=== PATIENT | male | born 1980 | race Caucasian/White ===

== ENCOUNTER → 2024-09-10 14:00 | Outpatient (BNV) | payer OTHER, SELFPAY | PROVIDERS: Visit Provider Clinical Nurse Specialist Psychiatric/Mental Health | DX: F32.2 Major depressive disorder, single episode, severe without psychotic features (principal) | CPT/HCPCS: 90868 ==

== ENCOUNTER 2024-11-19 10:30 | Outpatient (RCR) | payer OTHER, SELFPAY ==
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
--- NOTE | 2024-09-10 14:10 | HO.TMSDAILY2 ---
TMS Daily Progress Note Daily TMS Progress Note Date of Service: 09/10/24 Week #: 1 Treatment #(04-25): 1 and mapping PHQ-9 Pre-Treatment (-): 12 PHQ-9 Most Recent (04-22): 12 KRISHAN-7 Pre-Treatment (0-21): 14 KRISHAN-7 Most Recent (0-): 14 Reviewed: TMS Mapping/Re-mapping completed Verification: I have reviewed the TMS Entry Level Automotive Technician Note and agree with the contents. The patient remains a candidate to continue TMS treatment per protocol. I have reviewed Dr Connell TMS consult note. Mapping completed; pt tolerated procedure well. Assessment and Plan (1) Depressive disorder, atypical: Status: Acute (2) Chronic post-traumatic stress disorder (PTSD): Status: Acute Plan Continue TMS treatment plan; discussed with patient to monitor for mood swings and to alert staff andhis personal psychiatrist if he begins to feel dysregulated/mood swings: he verbalized agreement and understanding
--- NOTE | 2024-09-16 12:52 | P.PNPS_ITS ---
TMS Daily Progress Note Daily TMS Progress Note Date of Service: 09/12/24 Week #: 1 Treatment #(04-25): 3 PHQ-9 Pre-Treatment (-): 12 PHQ-9 Most Recent (-): 12 KRISHAN-7 Pre-Treatment (0-21): 14 KRISHAN-7 Most Recent (0-21): 14 CGI-I Most Recent: 0 = Not Assessed Reviewed: TMS Tech Note Reviewed Verification: I have reviewed the TMS Electrician Office Note and agree with the contents. The patient remains a candidate to continue TMS treatment per protocol. Assessment and Plan (1) Depressive disorder, atypical: Status: Acute (2) Chronic post-traumatic stress disorder (PTSD): Status: Acute Plan Continue TMS tx plan
--- NOTE | 2024-09-17 17:02 | HO.TMSDAILY2 ---
TMS Daily Progress Note Daily TMS Progress Note Date of Service: 09/16/24 Week #: 1 Treatment #(30): 5 PHQ-9 Pre-Treatment (-): 12 PHQ-9 Most Recent (-): 16 KRISHAN-7 Pre-Treatment (0-21): 14 KRISHAN-7 Most Recent (0-21): 17 CGI-I Most Recent: 0 = Not Assessed Q-LES-Q-SF Most Recent: 34 Reviewed: TMS Tech Note Reviewed Verification: I have reviewed the TMS Electrical Appliance Preparer Note and agree with the contents. The patient remains a candidate to continue TMS treatment per protocol. Assessment and Plan (1) Depressive disorder, atypical: Status: Acute (2) Chronic post-traumatic stress disorder (PTSD): Status: Acute Plan Continue TMS treatment plan; of note PHQ9 and KRISHAN score are worse from pre treatment scores; will monitor
--- NOTE | 2024-09-17 17:04 | P.PNPS_ITS ---
TMS Daily Progress Note Daily TMS Progress Note Date of Service: 09/17/24 Week #: 1 Treatment #(04-25): 6 PHQ-9 Pre-Treatment (1-): 12 PHQ-9 Most Recent (04-22): 16 KRISHAN-7 Pre-Treatment (0-21): 14 KRISHAN-7 Most Recent (0-21): 17 CGI-I Most Recent: 0 = Not Assessed Q-LES-Q-SF Most Recent: 34 Reviewed: TMS Tech Note Reviewed Verification: I have reviewed the TMS Geographical Historian Note and agree with the contents. The patient remains a candidate to continue TMS treatment per protocol. Assessment and Plan (1) Chronic post-traumatic stress disorder (PTSD): Status: Acute (2) Depressive disorder, atypical: Status: Acute Plan Continue TMS treatment plan; monitor progress as RCS7ipa GAD7 scores worse since admission
--- NOTE | 2024-09-23 11:02 | P.PNPS_ITS ---
TMS Daily Progress Note Daily TMS Progress Note Date of Service: 09/19/24 Week #: 2 Treatment #(-30): 7 PHQ-9 Pre-Treatment (-): 12 PHQ-9 Most Recent (04-22): 16 KRISHAN-7 Pre-Treatment (0-21): 14 KRISHAN-7 Most Recent (0-21): 17 CGI-I Most Recent: 0 = Not Assessed Q-LES-Q-SF Most Recent: 34 Reviewed: TMS Tech Note Reviewed Verification: I have reviewed the TMS Diesel Locomotive Crane Operator Note and agree with the contents. The patient remains a candidate to continue TMS treatment per protocol. Assessment and Plan (1) Chronic post-traumatic stress disorder (PTSD): Status: Acute (2) Depressive disorder, atypical: Status: Acute Plan Continue TMS treatment plan
--- NOTE | 2024-10-14 17:18 | P.PNPS_ITS ---
TMS Daily Progress Note Daily TMS Progress Note Date of Service: 10/14/24 Week #: 4 Treatment #(04-25): 17 PHQ-9 Pre-Treatment (-): 12 PHQ-9 Most Recent (04-22): 16 KRISHAN-7 Pre-Treatment (0-21): 14 KRISHAN-7 Most Recent (0-21): 16 CGI-I Most Recent: 0 = Not Assessed Q-LES-Q-SF Most Recent: 34 Reviewed: TMS Tech Note Reviewed Verification: I have reviewed the TMS Optical Engineering Manager Note and agree with the contents. The patient remains a candidate to continue TMS treatment per protocol. Assessment and Plan (1) Chronic post-traumatic stress disorder (PTSD): Status: Acute (2) Depressive disorder, atypical: Status: Acute Plan Continue TMS treatment plan
--- NOTE | 2024-10-14 17:19 | P.PNPS_ITS ---
TMS Daily Progress Note Daily TMS Progress Note Date of Service: 10/10/24 Week #: 4 Treatment #(-30): 16 PHQ-9 Pre-Treatment (1-): 12 PHQ-9 Most Recent (04-22): 16 KRISHAN-7 Pre-Treatment (0-21): 14 KRISHAN-7 Most Recent (0-21): 18 CGI-I Most Recent: 0 = Not Assessed Q-LES-Q-SF Most Recent: 34 Reviewed: TMS Tech Note Reviewed Verification: I have reviewed the TMS Singer Back Tender Note and agree with the contents. The patient remains a candidate to continue TMS treatment per protocol. Assessment and Plan (1) Chronic post-traumatic stress disorder (PTSD): Status: Acute (2) Depressive disorder, atypical: Status: Acute Plan Continue TMS treatment plan
--- NOTE | 2024-10-14 17:20 | P.PNPS_ITS ---
TMS Daily Progress Note Daily TMS Progress Note Date of Service: 10/08/24 Week #: 3 Treatment #(-30): 14 PHQ-9 Pre-Treatment (1-): 12 PHQ-9 Most Recent (-): 16 KRISHAN-7 Pre-Treatment (0-21): 14 KRISHAN-7 Most Recent (0-21): 18 CGI-I Most Recent: 0 = Not Assessed Q-LES-Q-SF Most Recent: 34 Reviewed: TMS Tech Note Reviewed Verification: I have reviewed the TMS Gun Perforator Loader Note and agree with the contents. The patient remains a candidate to continue TMS treatment per protocol. Assessment and Plan (1) Chronic post-traumatic stress disorder (PTSD): Status: Acute (2) Depressive disorder, atypical: Status: Acute Plan Continue TMS treatment plan
--- NOTE | 2024-10-14 17:21 | P.PNPS_ITS ---
TMS Daily Progress Note Daily TMS Progress Note Date of Service: 10/07/24 Week #: 3 Treatment #(-30): 13 PHQ-9 Pre-Treatment (1-): 12 PHQ-9 Most Recent (-): 16 KRISHAN-7 Pre-Treatment (0-21): 14 KRISHAN-7 Most Recent (0-21): 18 CGI-I Most Recent: 0 = Not Assessed Q-LES-Q-SF Most Recent: 34 Reviewed: TMS Tech Note Reviewed Verification: I have reviewed the TMS Information Management Specialist Note and agree with the contents. The patient remains a candidate to continue TMS treatment per protocol. Assessment and Plan (1) Chronic post-traumatic stress disorder (PTSD): Status: Acute (2) Depressive disorder, atypical: Status: Acute Plan Continue TMS treatment plan
--- NOTE | 2024-10-14 17:21 | HO.TMSDAILY2 ---
TMS Daily Progress Note Daily TMS Progress Note Date of Service: 10/03/24 Week #: 3 Treatment #(-30): 12 PHQ-9 Pre-Treatment (1-): 12 PHQ-9 Most Recent (04-22): 16 KRISHAN-7 Pre-Treatment (0-21): 14 KRISHAN-7 Most Recent (0-21): 19 CGI-I Most Recent: 0 = Not Assessed Reviewed: TMS Tech Note Reviewed Verification: I have reviewed the TMS Social Welfare Administrator Note and agree with the contents. The patient remains a candidate to continue TMS treatment per protocol. Assessment and Plan (1) Chronic post-traumatic stress disorder (PTSD): Status: Acute (2) Depressive disorder, atypical: Status: Acute Plan Continue TMS treatment plan
--- NOTE | 2024-10-14 17:22 | P.PNPS_ITS ---
TMS Daily Progress Note Daily TMS Progress Note Date of Service: 10/01/24 Week #: 2 Treatment #(-): 10 PHQ-9 Pre-Treatment (1-): 12 PHQ-9 Most Recent (04-22): 16 KRIHSAN-7 Pre-Treatment (0-21): 14 KRISHAN-7 Most Recent (0-21): 19 CGI-I Most Recent: 0 = Not Assessed Q-LES-Q-SF Most Recent: 34 Reviewed: TMS Tech Note Reviewed Verification: I have reviewed the TMS Toppiece Cutter Note and agree with the contents. The patient remains a candidate to continue TMS treatment per protocol. Assessment and Plan (1) Chronic post-traumatic stress disorder (PTSD): Status: Acute (2) Depressive disorder, atypical: Status: Acute Plan Continue TMS treatment plan
--- NOTE | 2024-10-14 17:23 | HO.TMSDAILY2 ---
TMS Daily Progress Note Daily TMS Progress Note Date of Service: 09/30/24 Week #: 2 Treatment #(-30): 9 PHQ-9 Pre-Treatment (1-): 12 PHQ-9 Most Recent (-): 16 KRISHAN-7 Pre-Treatment (0-21): 14 KRISHAN-7 Most Recent (0-21): 19 CGI-I Most Recent: 0 = Not Assessed Reviewed: TMS Tech Note Reviewed Verification: I have reviewed the TMS Estimator Project Manager Note and agree with the contents. The patient remains a candidate to continue TMS treatment per protocol. Assessment and Plan (1) Chronic post-traumatic stress disorder (PTSD): Status: Acute (2) Depressive disorder, atypical: Status: Acute Plan Continue TMS treatment plan
--- NOTE | 2024-10-17 17:45 | HO.TMSDAILY2 ---
TMS Daily Progress Note Daily TMS Progress Note Date of Service: 10/17/24 Week #: 4 Treatment #(-30): 20 PHQ-9 Pre-Treatment (1-27): 12 PHQ-9 Most Recent (-): 16 KRISHAN-7 Pre-Treatment (0-21): 14 KRISHAN-7 Most Recent (0-21): 16 CGI-I Most Recent: 0 = Not Assessed Q-LES-Q-SF Most Recent: 34 Reviewed: TMS Tech Note Reviewed Verification: I have reviewed the TMS Business Development Associate Note and agree with the contents. The patient remains a candidate to continue TMS treatment per protocol. Assessment and Plan (1) Chronic post-traumatic stress disorder (PTSD): Status: Acute (2) Depressive disorder, atypical: Status: Acute Plan Continue TMS treatment plan;consider reducing MT
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
--- NOTE | 2024-10-20 23:14 | P.PNPS_ITS ---
TMS Daily Progress Note Daily TMS Progress Note Date of Service: 09/18/24 Week #: 2 Treatment #(-30): 6 PHQ-9 Pre-Treatment (1-): 12 PHQ-9 Most Recent (04-22): 16 KRISHAN-7 Pre-Treatment (0-21): 14 KRISHAN-7 Most Recent (0-21): 17 CGI-I Most Recent: 0 = Not Assessed Q-LES-Q-SF Most Recent: 34 Reviewed: TMS Tech Note Reviewed Verification: I have reviewed the TMS National Recruiter Note and agree with the contents. The patient remains a candidate to continue TMS treatment per protocol. Assessment and Plan (1) Depressive disorder, atypical: Status: Acute (2) Chronic post-traumatic stress disorder (PTSD): Status: Acute Plan Continue plan of care no adverse effects noted
--- NOTE | 2024-10-20 23:19 | P.PNPS_ITS ---
TMS Daily Progress Note Daily TMS Progress Note Date of Service: 09/20/24 Week #: 2 Treatment #(04-25): 8 PHQ-9 Pre-Treatment (-): 12 PHQ-9 Most Recent (04-22): 16 KRISHAN-7 Pre-Treatment (0-21): 14 KRISHAN-7 Most Recent (0-21): 17 CGI-I Most Recent: 0 = Not Assessed Q-LES-Q-SF Most Recent: 34 Reviewed: TMS Tech Note Reviewed Verification: I have reviewed the TMS Senior Sharepoint Architect Note and agree with the contents. The patient remains a candidate to continue TMS treatment per protocol. Assessment and Plan (1) Depressive disorder, atypical: Status: Acute (2) Chronic post-traumatic stress disorder (PTSD): Status: Acute Plan Continue plan of care no adverse effects noted no improvement noted does have ongoing stress
--- NOTE | 2024-10-20 23:22 | P.PNPS_ITS ---
TMS Daily Progress Note Daily TMS Progress Note Date of Service: 10/09/24 Week #: 3 Treatment #(04-25): 15 PHQ-9 Pre-Treatment (-): 12 PHQ-9 Most Recent (04-22): 16 KRISHAN-7 Pre-Treatment (0-21): 14 KRISHAN-7 Most Recent (0-21): 17 CGI-I Most Recent: 0 = Not Assessed Q-LES-Q-SF Most Recent: 34 Reviewed: TMS Tech Note Reviewed Verification: I have reviewed the TMS Senior Nurse Manager Note and agree with the contents. The patient remains a candidate to continue TMS treatment per protocol. Assessment and Plan (1) Depressive disorder, atypical: Status: Acute (2) Chronic post-traumatic stress disorder (PTSD): Status: Acute Plan Continue plan of care no adverse effects no clear improvement generally tolerating treatment denies any thoughts of self-harm has generally been off psychiatric medication
--- NOTE | 2024-10-20 23:27 | P.PNPS_ITS ---
TMS Daily Progress Note Daily TMS Progress Note Date of Service: 10/16/24 Week #: 4 Treatment #(04-25): 19 PHQ-9 Pre-Treatment (1-): 12 PHQ-9 Most Recent (04-22): 16 KRISHAN-7 Pre-Treatment (0-21): 14 KRISHAN-7 Most Recent (0-21): 17 CGI-I Most Recent: 0 = Not Assessed Q-LES-Q-SF Most Recent: 34 Reviewed: TMS Tech Note Reviewed Verification: I have reviewed the TMS Community Case Manager Note and agree with the contents. The patient remains a candidate to continue TMS treatment per protocol. Assessment and Plan (1) Depressive disorder, atypical: Status: Acute (2) Chronic post-traumatic stress disorder (PTSD): Status: Acute Plan Continue plan of care no adverse effects no clear improvement generally tolerating treatment denies any thoughts of self-harm chronic irritability and dysphoria continue no major changes did discuss possibility left-sided treatment
--- NOTE | 2024-10-20 23:31 | P.PNPS_ITS ---
TMS Daily Progress Note Daily TMS Progress Note Date of Service: 10/18/24 Week #: 5 Treatment #(-30): 21 PHQ-9 Pre-Treatment (-): 12 PHQ-9 Most Recent (04-22): 16 KRISHAN-7 Pre-Treatment (0-21): 14 KRISHAN-7 Most Recent (0-21): 17 CGI-I Most Recent: 0 = Not Assessed Q-LES-Q-SF Most Recent: 34 Reviewed: TMS Tech Note Reviewed Verification: I have reviewed the TMS Trimming Machine Operator Note and agree with the contents. The patient remains a candidate to continue TMS treatment per protocol. Assessment and Plan (1) Depressive disorder, atypical: Status: Acute (2) Chronic post-traumatic stress disorder (PTSD): Status: Acute Plan Continue plan of care MT percentage decreased secondary to dental pain ketamine/esketamine remains an option for this patient and has been discussed Denies any active self-harming thoughts feels very connected with his son
--- NOTE | 2024-10-21 15:32 | HO.TMSDAILY2 ---
TMS Daily Progress Note Daily TMS Progress Note Date of Service: 10/15/24 Week #: 4 Treatment #(04-25): 18 PHQ-9 Pre-Treatment (-): 12 PHQ-9 Most Recent (04-22): 16 KRISHAN-7 Pre-Treatment (0-21): 14 KRISHAN-7 Most Recent (0-21): 16 CGI-I Most Recent: 0 = Not Assessed Q-LES-Q-SF Most Recent: 34 Reviewed: TMS Tech Note Reviewed Verification: I have reviewed the TMS Personnel Recruiter Note and agree with the contents. The patient remains a candidate to continue TMS treatment per protocol. Assessment and Plan (1) Depressive disorder, atypical: Status: Acute (2) Chronic post-traumatic stress disorder (PTSD): Status: Acute Plan Continue plan of care MT percentage decreased secondary to dental pain ketamine/esketamine remains an option for this patient and has been discussed Denies any active self-harming thoughts feels very connected with his son
--- NOTE | 2024-10-22 13:12 | P.PNPS_ITS ---
TMS Daily Progress Note Daily TMS Progress Note Date of Service: 10/21/24 Week #: 5 Treatment #(-): 22 PHQ-9 Pre-Treatment (-): 12 PHQ-9 Most Recent (04-22): 17 KRISHAN-7 Pre-Treatment (0-21): 14 KRISHAN-7 Most Recent (0-21): 16 CGI-I Most Recent: 0 = Not Assessed Q-LES-Q-SF Most Recent: 34 Reviewed: TMS Tech Note Reviewed Verification: I have reviewed the TMS Geothermal Electrical Engineer Note and agree with the contents. The patient remains a candidate to continue TMS treatment per protocol. Assessment and Plan (1) Depressive disorder, atypical: Status: Acute (2) Chronic post-traumatic stress disorder (PTSD): Status: Acute Plan Continue plan of care MT percentage decreased secondary to dental pain ketamine/esketamine remains an option for this patient and has been discussed Denies any active self-harming thoughts feels very connected with his son
--- NOTE | 2024-10-28 17:02 | P.PNPS_ITS ---
TMS Daily Progress Note Daily TMS Progress Note Date of Service: 10/28/24 Week #: 5 Treatment #(04-25): 23 PHQ-9 Pre-Treatment (-): 12 PHQ-9 Most Recent (04-22): 16 KRISHAN-7 Pre-Treatment (0-21): 14 KRISHAN-7 Most Recent (0-21): 14 CGI-I Most Recent: 0 = Not Assessed Q-LES-Q-SF Most Recent: 34 Reviewed: TMS Tech Note Reviewed Verification: I have reviewed the TMS Supervising Appraiser Note and agree with the contents. The patient remains a candidate to continue TMS treatment per protocol. Assessment and Plan (1) Depressive disorder, atypical: Status: Acute (2) Chronic post-traumatic stress disorder (PTSD): Status: Acute Plan Continue plan of care MT percentage decreased secondary to dental pain ketamine/esketamine remains an option for this patient and has been discussed Denies any active self-harming thoughts feels very connected with his son remapping on monday due to continued depression and Passive SI
--- NOTE | 2024-11-05 13:20 | P.PNPS_ITS ---
TMS Daily Progress Note Daily TMS Progress Note Date of Service: 10/02/24 Week #: 3 Treatment #(-): 11 PHQ-9 Pre-Treatment (-): 12 PHQ-9 Most Recent (04-22): 16 KRISHAN-7 Pre-Treatment (0-21): 14 KRISHAN-7 Most Recent (0-21): 14 CGI-I Most Recent: 0 = Not Assessed Q-LES-Q-SF Most Recent: 34 Reviewed: TMS Tech Note Reviewed Verification: I have reviewed the TMS Certified Master Safe Technician Note and agree with the contents. The patient remains a candidate to continue TMS treatment per protocol.
--- NOTE | 2024-11-05 13:48 | P.PNPS_ITS ---
TMS Daily Progress Note Daily TMS Progress Note Date of Service: 10/31/24 Week #: 5 Treatment #(-30): 25 PHQ-9 Pre-Treatment (1-): 12 PHQ-9 Most Recent (04-22): 16 KRISHAN-7 Pre-Treatment (0-21): 14 KRISHAN-7 Most Recent (0-21): 14 CGI-I Most Recent: 0 = Not Assessed Q-LES-Q-SF Most Recent: 34 Reviewed: TMS Tech Note Reviewed Verification: I have reviewed the TMS Director Of Rehabilitative Services Note and agree with the contents. The patient remains a candidate to continue TMS treatment per protocol. Assessment and Plan (1) Depressive disorder, atypical: Status: Acute (2) Chronic post-traumatic stress disorder (PTSD): Status: Acute Plan Continue TMS plan of care
--- NOTE | 2024-11-05 13:53 | HO.TMSDAILY2 ---
TMS Daily Progress Note Daily TMS Progress Note Date of Service: 11/04/24 Week #: 6 Treatment #(-30): 26 PHQ-9 Pre-Treatment (-): 12 PHQ-9 Most Recent (04-22): 13 KRISHAN-7 Pre-Treatment (0-21): 14 KRISHAN-7 Most Recent (0-21): 14 CGI-I Most Recent: 0 = Not Assessed Q-LES-Q-SF Most Recent: 34 Reviewed: TMS Tech Note Reviewed Verification: I have reviewed the TMS Church Communications Administrator Note and agree with the contents. The patient remains a candidate to continue TMS treatment per protocol. Assessment and Plan (1) Depressive disorder, atypical: Status: Acute (2) Chronic post-traumatic stress disorder (PTSD): Status: Acute Plan Continue TMS plan of care
--- NOTE | 2024-11-18 16:03 | HO.TMSDAILY2 ---
TMS Daily Progress Note Daily TMS Progress Note Date of Service: 11/05/24 Week #: 6 Treatment #(-30): 27 PHQ-9 Pre-Treatment (1-): 12 PHQ-9 Most Recent (04-22): 13 KRISHAN-7 Pre-Treatment (0-21): 14 KRISHAN-7 Most Recent (0-21): 14 CGI-I Most Recent: 0 = Not Assessed Q-LES-Q-SF Most Recent: 34 Reviewed: TMS Tech Note Reviewed Verification: I have reviewed the TMS Store Coordinator Note and agree with the contents. The patient remains a candidate to continue TMS treatment per protocol. Assessment and Plan (1) Depressive disorder, atypical: Status: Acute (2) Chronic post-traumatic stress disorder (PTSD): Status: Acute Plan Continue TMS plan of care
--- NOTE | 2024-11-18 16:05 | P.PNPS_ITS ---
TMS Daily Progress Note Daily TMS Progress Note Date of Service: 11/15/24 Treatment #(04-25): 27 PHQ-9 Pre-Treatment (1-): 12 PHQ-9 Most Recent (04-22): 13 KRISHAN-7 Pre-Treatment (0-21): 14 KRISHAN-7 Most Recent (0-21): 14 CGI-I Most Recent: 0 = Not Assessed Q-LES-Q-SF Most Recent: 34 Verification: I have reviewed the TMS Financial Sales Advisor Note and agree with the contents. The patient remains a candidate to continue TMS treatment per protocol.
--- NOTE | 2024-11-26 16:39 | HO.TMSDAILY2 ---
TMS Daily Progress Note Daily TMS Progress Note Date of Service: 10/30/24 Week #: 5 Treatment #(04-25): 24 PHQ-9 Pre-Treatment (04-22): 14 PHQ-9 Most Recent (04-22): 16 CGI-I Most Recent: 0 = Not Assessed Reviewed: TMS Mapping/Re-mapping completed Verification: I have reviewed the TMS Technical Clerk Note and agree with the contents. The patient remains a candidate to continue TMS treatment per protocol. Assessment and Plan (1) Depressive disorder, atypical: Status: Acute (2) Chronic post-traumatic stress disorder (PTSD): Status: Acute Plan Patient was having left-sided tooth pain no relief from depression no increase suicidality no worsening of symptoms. Patient agreeable to re mapping patient tolerated re mapping there is significant change in treatment settings no left-sided facial nerve pain also discussed right left treatment Total time managing care of this patient today: 40 minutes.
--- NOTE | 2024-11-26 16:46 | HO.TMSDAILY2 ---
TMS Daily Progress Note Daily TMS Progress Note Date of Service: 11/06/24 Week #: 6 Treatment #(-30): 28 PHQ-9 Pre-Treatment (-): 14 PHQ-9 Most Recent (04-22): 14 KRISHAN-7 Pre-Treatment (0-21): 14 KRISHAN-7 Most Recent (0-21): 14 CGI-I Most Recent: 0 = Not Assessed Reviewed: TMS Tech Note Reviewed Verification: I have reviewed the TMS Experimental Outboard Motors Mechanic Note and agree with the contents. The patient remains a candidate to continue TMS treatment per protocol. Assessment and Plan (1) Chronic post-traumatic stress disorder (PTSD): Status: Acute (2) Depressive disorder, atypical: Status: Acute Plan Patient appears to be tolerating treatment he does relate chronic issues related to custody no SI
--- NOTE | 2024-11-26 16:49 | HO.TMSDAILY2 ---
TMS Daily Progress Note Daily TMS Progress Note Date of Service: 11/08/24 Week #: 6 Treatment #(-): 29 PHQ-9 Pre-Treatment (-): 14 PHQ-9 Most Recent (04-22): 14 KRISHAN-7 Pre-Treatment (0-21): 14 KRISHAN-7 Most Recent (0-21): 14 CGI-I Most Recent: 0 = Not Assessed Q-LES-Q-SF Most Recent: 40 Reviewed: TMS Tech Note Reviewed Verification: I have reviewed the TMS Insurance Verification Representative Note and agree with the contents. The patient remains a candidate to continue TMS treatment per protocol. Assessment and Plan (1) Chronic post-traumatic stress disorder (PTSD): Status: Acute (2) Depressive disorder, atypical: Status: Acute Plan Patient tolerating treatment feels something is starting to move inside of him feeling more hopeful
--- NOTE | 2024-11-26 17:09 | HO.TMSDAILY2 ---
TMS Daily Progress Note Daily TMS Progress Note Date of Service: 11/11/24 Week #: 6 Treatment #(-): 30 PHQ-9 Pre-Treatment (-): 14 PHQ-9 Most Recent (04-22): 13 KRISHAN-7 Pre-Treatment (0-21): 14 KRISHAN-7 Most Recent (0-21): 14 CGI-I Most Recent: 0 = Not Assessed Q-LES-Q-SF Most Recent: 40 Reviewed: TMS Tech Note Reviewed Verification: I have reviewed the TMS Nuclear Control Room Operator Note and agree with the contents. The patient remains a candidate to continue TMS treatment per protocol. Assessment and Plan (1) Chronic post-traumatic stress disorder (PTSD): Status: Acute (2) Depressive disorder, atypical: Status: Acute Plan Patient tolerating treatment seems less depressed less irritable and reactive more social and engaged
--- NOTE | 2024-11-26 17:23 | P.PNPS_ITS ---
TMS Daily Progress Note Daily TMS Progress Note Date of Service: 11/12/24 Week #: 7 Treatment #(-): 31 PHQ-9 Pre-Treatment (-): 14 PHQ-9 Most Recent (04-22): 12 KRISHAN-7 Pre-Treatment (0-21): 14 KRISHAN-7 Most Recent (0-21): 14 CGI-I Most Recent: 0 = Not Assessed Q-LES-Q-SF Most Recent: 40 Reviewed: TMS Tech Note Reviewed Verification: I have reviewed the TMS Professor Of Communication Note and agree with the contents. The patient remains a candidate to continue TMS treatment per protocol. Assessment and Plan (1) Chronic post-traumatic stress disorder (PTSD): Status: Acute (2) Depressive disorder, atypical: Status: Acute Plan Patient tolerating treatment seems less depressed less irritable and reactive more social and engaged during treatment. No complaints of side effects
--- NOTE | 2024-11-26 17:25 | P.PNPS_ITS ---
TMS Daily Progress Note Daily TMS Progress Note Date of Service: 11/13/24 Week #: 7 Treatment #(04-25): 32 PHQ-9 Pre-Treatment (-): 14 PHQ-9 Most Recent (04-22): 12 KRISHAN-7 Pre-Treatment (0-21): 14 KRISHAN-7 Most Recent (0-21): 13 CGI-I Most Recent: 0 = Not Assessed Q-LES-Q-SF Most Recent: 40 Reviewed: TMS Tech Note Reviewed Verification: I have reviewed the TMS Adoption Coordinator Note and agree with the contents. The patient remains a candidate to continue TMS treatment per protocol. Assessment and Plan (1) Chronic post-traumatic stress disorder (PTSD): Status: Acute (2) Depressive disorder, atypical: Status: Acute Plan Patient tolerating treatment seems less depressed less irritable but remains easily impacted by the mother of his son to feel badly He understands he needs to find a way to manage this
--- NOTE | 2024-11-26 17:29 | P.PNPS_ITS ---
TMS Daily Progress Note Daily TMS Progress Note Date of Service: 11/14/24 Week #: 7 Treatment #(04-25): 33 PHQ-9 Pre-Treatment (-): 14 PHQ-9 Most Recent (04-22): 12 KRISHAN-7 Pre-Treatment (0-21): 14 KRISHAN-7 Most Recent (0-): 13 CGI-I Most Recent: 0 = Not Assessed Q-LES-Q-SF Most Recent: 40 Reviewed: TMS Tech Note Reviewed Verification: I have reviewed the TMS Linting Machine Operator Note and agree with the contents. The patient remains a candidate to continue TMS treatment per protocol. Assessment and Plan (1) Chronic post-traumatic stress disorder (PTSD): Status: Acute (2) Depressive disorder, atypical: Status: Acute Plan Patient tolerating treatment seems less depressed less irritable but remains easily impacted by the mother of his son . His son is coming back from vacation with his mother patient remains more verbal and engaged less reactive and irritable
--- NOTE | 2024-11-26 17:32 | HO.TMSDAILY2 ---
TMS Daily Progress Note Daily TMS Progress Note Date of Service: 11/15/24 Week #: 8 Treatment #(04-25): 34 PHQ-9 Pre-Treatment (-): 14 PHQ-9 Most Recent (04-22): 12 KRISHAN-7 Pre-Treatment (0-21): 14 KRISHAN-7 Most Recent (0-21): 13 CGI-I Most Recent: 0 = Not Assessed Q-LES-Q-SF Most Recent: 40 Reviewed: TMS Tech Note Reviewed Verification: I have reviewed the TMS Oral Communication Instructor Note and agree with the contents. The patient remains a candidate to continue TMS treatment per protocol. Assessment and Plan (1) Chronic post-traumatic stress disorder (PTSD): Status: Acute (2) Depressive disorder, atypical: Status: Acute Plan Patient tolerating treatment seems less depressed less irritable but remains easily impacted by the mother of his son . No complaints of side effects
--- NOTE | 2024-11-26 17:35 | HO.TMSDAILY2 ---
TMS Daily Progress Note Daily TMS Progress Note Date of Service: 11/19/24 Week #: 8 Treatment #(04-25): 36 PHQ-9 Pre-Treatment (-): 14 PHQ-9 Most Recent (04-22): 12 KRISHAN-7 Pre-Treatment (0-21): 14 KRISHAN-7 Most Recent (0-21): 13 CGI-I Most Recent: 0 = Not Assessed Q-LES-Q-SF Most Recent: 40 Reviewed: TMS Tech Note Reviewed Verification: I have reviewed the TMS Grassland Conservationist Note and agree with the contents. The patient remains a candidate to continue TMS treatment per protocol. Assessment and Plan (1) Depressive disorder, atypical: Status: Acute (2) Chronic post-traumatic stress disorder (PTSD): Status: Acute Plan Patient received his last day of treatment. He does state he has significantly improved from what he was 1st seen when he was feeling quite terrible and has shown significant improvement in range of affect much decreased irritability. Initial PHQ-9 was probably significantly higher than measured. Patient does feel significantly helped and improved after treatment. Patient seen in treatment discussed and results discussed
--- NOTE | 2024-12-03 09:55 | P.PNPS_ITS ---
TMS Daily Progress Note Daily TMS Progress Note Date of Service: 11/18/24 Week #: 8 Treatment #(-): 35 PHQ-9 Pre-Treatment (-): 14 PHQ-9 Most Recent (04-22): 12 KRISHAN-7 Pre-Treatment (0-21): 14 KRISHAN-7 Most Recent (0-21): 12 CGI-I Most Recent: 0 = Not Assessed Q-LES-Q-SF Most Recent: 40 Reviewed: TMS Tech Note Reviewed Verification: I have reviewed the TMS Dispatcher Motor Vehicle Note and agree with the contents. The patient remains a candidate to continue TMS treatment per protocol. Assessment and Plan (1) Depressive disorder, atypical: Status: Acute (2) Chronic post-traumatic stress disorder (PTSD): Status: Acute Plan Continue TMS treatment plan
== END 2024-11-19 15:00 | disposition home or self-care (01) ==
LOC: HO.PTMS 10:30
PROVIDERS: Referring Provider Psychiatry & Neurology Psychiatry; Visit Provider Psychiatry & Neurology Psychiatry
DX: F43.12 Post-traumatic stress disorder, chronic (principal); F32.89 Other specified depressive episodes
CPT/HCPCS: 90867; 90868; 90869; 99204